=== PATIENT | male | born 1980 | race Caucasian/White ===

== ENCOUNTER 2024-08-13 10:13 | Emergency (ER) | payer OTHER ==
[~2024-08-13] VITALS: Ht 175.3 cm; Wt 86.3 kg
[2024-08-13] MEDS ORDERED: TRAZODONE HCL50 MG PO (10:44)
[2024-08-13] MEDS ORDERED: CYMBALTA60 MG PO (10:44)
[2024-08-13] MEDS ORDERED: OMEPRAZOLE20 MG PO (10:44)
[2024-08-13] MEDS ORDERED: NEURONTIN300 MG PO (10:44)
[2024-08-13] MEDS ORDERED: VENTOLIN HFA18 GM INH (10:44)
[2024-08-13] MEDS ORDERED: QVAR REDIHALE10.6 GM INH (10:44)
[2024-08-13] MEDS ORDERED: CLEOCIN T60 ML TOP (10:44)
[2024-08-13] MEDS ORDERED: DOXYCYCLINE HY100 MG PO (10:44)
[2024-08-13] MEDS ORDERED: ABILIFY5 MG PO (10:44)
[2024-08-13] MEDS ORDERED: FLUTICASONE PRO12 GM INH (10:44)
[2024-08-13 11:00] VITALS: BP 136/78
[2024-08-13] MEDS ORDERED: ALBUTEROL/IPRATROPIUM 3 ML NEB INH ONE (11:00)
== END 2024-08-13 11:00 | disposition home or self-care (01) ==
LOC: ED 10:13
DX: Z76.0 Encounter for issue of repeat prescription (principal); Z79.899 Other long term (current) drug therapy
CPT/HCPCS: 94640; 99281

== ENCOUNTER 2024-08-24 11:07 | Emergency (ER) | payer OTHER ==
[~2024-08-24] VITALS: Ht 175.3 cm; Wt 72.1 kg
[~2024-08-24 11:07] MED LIST: ABILIFY5 MG PO; CLEOCIN T60 ML TOP; CYMBALTA60 MG PO; DOXYCYCLINE HY100 MG PO; FLUTICASONE PRO12 GM INH; NEURONTIN300 MG PO; OMEPRAZOLE20 MG PO; QVAR REDIHALE10.6 GM INH; TRAZODONE HCL50 MG PO; VENTOLIN HFA18 GM INH
--- OUTSIDE RECORDS SUMMARY | 2024-08-24 11:09 | XMS ---
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 Eber has no Care Guidelines for this patient. Robi VISIT COUNT (12 MO.) [facility] NOTE: Visits indicate total known visits. ED/UCC VISIT TRACKING (12 MO.) 08/24/2024 11:09 [facility] [place] TYPE: Emergency COMPLAINT: - MEDICATION REFILL 08/13/2024 10:14 [facility] [place] TYPE: Emergency COMPLAINT: - MEDICATION REFILL DIAGNOSES: - Encounter for issue of repeat prescription - Other chcf (current) drug therapy INPATIENT VISIT TRACKING (12 MO.) No inpatient visits to display in this time frame [email or web address]
[2024-08-24] MEDS ORDERED: VENTOLIN HFA18 GM (12:43)
[2024-08-24 12:59] VITALS: BP 125/74
== END 2024-08-24 13:01 | disposition home or self-care (01) ==
LOC: ED 11:07
DX: Z76.0 Encounter for issue of repeat prescription (principal); Z88.8 Allergy status to other drugs, medicaments and biological substances; Z79.899 Other long term (current) drug therapy
CPT/HCPCS: 99281

== ENCOUNTER 2024-09-04 13:07 | Emergency (ER) | payer OTHER ==
[~2024-09-04] VITALS: Ht 175.3 cm; Wt 75.0 kg
[~2024-09-04 13:07] MED LIST changes: +VENTOLIN HFA18 GM
--- OUTSIDE RECORDS SUMMARY | 2024-09-04 13:08 | XMS ---
PreManage Notification: SANTOS GAGE Security Manager Estate Events No recent Security Events currently on file CRITERIA MET - [facility] - 2 Visits in 30 Days CARE PROVIDERS There are no care providers on record at this time. Eber has no Care Guidelines for this patient. Robi VISIT COUNT (12 MO.) 3 [facility] [place] H. TOTAL 3 NOTE: Visits indicate total known visits. ED/C VISIT TRACKING (12 MO.) 09/04/2024 13:[address] [facility] [place] TYPE: Emergency COMPLAINT: - VOMITING 08/24/2024 11:09 [facility] [place] TYPE: Emergency COMPLAINT: - MEDICATION REFILL DIAGNOSES: - Allergy status to other drugs, medicaments and biological substances - Encounter for issue of repeat prescription - Other alf (current) drug therapy 08/13/2024 10:14 [facility] [place] TYPE: Emergency COMPLAINT: - MEDICATION REFILL DIAGNOSES: - Encounter for issue of repeat prescription - Other longshore equipment operator (current) drug therapy INPATIENT VISIT TRACKING (12 MO.) No inpatient visits to display in this time frame [email or web address]
[2024-09-04] MEDS ORDERED: SODIUM CHLORIDE 0.9% 500 ML IV ONE (13:30)
[2024-09-04 13:54] LABS: BASOPHILS 1.5 % (0-2); EOSINOPHILS 2.5 % (0-6); HEMATOCRIT 40.5 % (35.0-50.0); HEMOGLOBIN 13.6 g/dL (12.0-18.0); LYMPHOCYTES 36.8 % (24-44); MCH 32.2 (27-36); MCHC 33.6 g/dl (30-36); MCV 95.9 fl (81-99); MONOCYTES 7.4 % (0-12); NEUTROPHILS 51.8 % (39-80); PLATELET COUNT 367 K/uL (140-440); RBC 4.22 M/ul (4.3-5.7); RDW 13.5 (10.5-15.0)
[2024-09-04 14:21] LABS: ALBUMIN 3.3 g/dL (3.4-5.0); ALBUMIN/GLOBULIN RATIO 1.06 (1.1-2.4); ANION GAP 10.4 (7-21); BILIRUBIN, TOTAL 0.2 ng/dL (0.2-1.0); BUN/CREATININE RATIO 10.84 (6.0-28.6); CALCIUM 7.7 mg/dL (8.5-10.1); CREATININE, SERUM 0.83 mg/dL (0.70-1.30); MAGNESIUM 1.7 mg/dL (1.8-2.4); POTASSIUM 3.4 mmol/L (3.5-5.1); PROTEIN, TOTAL 6.4 g/dL (6.4-8.2)
[2024-09-04 14:25] LABS: ALCOHOL, MEDICAL 71 ng/dL (<3)
[2024-09-04 15:40] VITALS: BP 101/69
== END 2024-09-04 15:40 | disposition home or self-care (01) ==
LOC: ED 13:07
PROVIDERS: Emergency Medicine
DX: R11.2 Nausea with vomiting, unspecified (principal); F10.90 Alcohol use, unspecified, uncomplicated; Y90.3 Blood alcohol level of 60-79 mg/100 ml; Z88.6 Allergy status to analgesic agent; Z88.8 Allergy status to other drugs, medicaments and biological substances; Z79.899 Other long term (current) drug therapy
CPT/HCPCS: 36415; 80053; 83690; 83735; 85025; 99284; G0480; J7040

== ENCOUNTER 2024-10-01 20:04 | Emergency (ER) | payer OTHER ==
[~2024-10-01] VITALS: Ht 175.3 cm; Wt 70.3 kg
--- OUTSIDE RECORDS SUMMARY | 2024-10-01 20:04 | XMS ---
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 - 2 Visits in 30 Days CARE PROVIDERS There are no care providers on record at this time. Eber has no Care Guidelines for this patient. Robi VISIT COUNT (12 MO.) [facility] H. TOTAL 4 NOTE: Visits indicate total known visits. ED/C VISIT TRACKING (12 MO.) 10/01/2024 20:[address] [facility] [address] [facility] [place] TYPE: Emergency COMPLAINT: - MENTAL HEALTH 09/04/2024 13:07 [facility] [place] TYPE: Emergency COMPLAINT: - VOMITING DIAGNOSES: - Alcohol use, unspecified, uncomplicated - Allergy status to analgesic agent - Allergy status to other drugs, medicaments and biological substances - Blood alcohol level of 60-79 mg/100 ml - Nausea with vomiting, unspecified - Other salvage determiner (current) drug therapy 08/24/2024 11:[address] [facility] [address] [facility] [place] TYPE: Emergency COMPLAINT: - MEDICATION REFILL DIAGNOSES: - Allergy status to other drugs, medicaments and biological substances - Encounter for issue of repeat prescription - Other retirement (current) drug therapy 08/13/2024 10:[address] [facility] [address] [facility] [place] TYPE: Emergency COMPLAINT: - MEDICATION REFILL DIAGNOSES: - Encounter for issue of repeat prescription - Other salvage determiner (current) drug therapy INPATIENT VISIT TRACKING (12 MO.) No inpatient visits to display in this time frame [email or web address]
[2024-10-01 20:49] VITALS: BP 143/95
== END 2024-10-01 20:50 | disposition home or self-care (01) ==
LOC: ED 20:04
DX: Z79.899 Other long term (current) drug therapy (principal); Z88.6 Allergy status to analgesic agent; Z91.148 Patient's other noncompliance with medication regimen for other reason; Z00.8 Encounter for other general examination; Z59.00 Homelessness unspecified; Z88.8 Allergy status to other drugs, medicaments and biological substances
CPT/HCPCS: 99281

== ENCOUNTER 2024-10-06 14:07 | Emergency (ER) | payer OTHER ==
[~2024-10-06] VITALS: Ht 175.3 cm; Wt 68.0 kg
--- OUTSIDE RECORDS SUMMARY | 2024-10-06 14:09 | XMS ---
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 - 2 Visits in 30 Days CARE PROVIDERS There are no care providers on record at this time. Eber has no Care Guidelines for this patient. Robi V[facility]IT COUNT (12 MO.) [facility] NOTE: Visits indicate total known visits. ED/UCC VISIT TRACKING (12 MO.) 10/06/2024 14:08 [facility] COMPLAINT: - MEDICAL CLEARANCE 10/01/2024 20:04 [facility] HaileyAnushka [place] TYPE: Emergency COMPLAINT: - MENTAL HEALTH 09/04/2024 13:07 [facility] [place] TYPE: Emergency COMPLAINT: - VOMITING DIAGNOSES: - Alcohol use, unspecified, uncomplicated - Allergy status to analgesic agent - Allergy status to other drugs, medicaments and biological substances - Blood alcohol level of 60-79 mg/100 ml - Nausea with vomiting, unspecified - Other mcfp (current) drug therapy 08/24/2024 11:09 [facility] [place] TYPE: Emergency COMPLAINT: - MEDICATION REFILL DIAGNOSES: - Allergy status to other drugs, medicaments and biological substances - Encounter for issue of repeat prescription - Other keno terminal operator (current) drug therapy 08/13/2024 10:14 [facility] [place] TYPE: Emergency COMPLAINT: - MEDICATION REFILL DIAGNOSES: - Encounter for issue of repeat prescription - Other keno terminal operator (current) drug therapy INPATIENT VISIT TRACKING (12 MO.) No inpatient visits to display in this time frame [id number]
[2024-10-06 15:04] VITALS: BP 125/82
== END 2024-10-06 14:57 | disposition home or self-care (01) ==
LOC: ED 14:07
DX: F19.90 Other psychoactive substance use, unspecified, uncomplicated (principal); T43.216A Underdosing of selective serotonin and norepinephrine reuptake inhibitors, initial encounter; T43.596A Underdosing of other antipsychotics and neuroleptics, initial encounter; Z91.148 Patient's other noncompliance with medication regimen for other reason; Z88.6 Allergy status to analgesic agent; Z88.8 Allergy status to other drugs, medicaments and biological substances; Z79.51 Long term (current) use of inhaled steroids; Z79.899 Other long term (current) drug therapy
CPT/HCPCS: 99283

== ENCOUNTER 2024-10-10 13:01 | Emergency (ER) | payer OTHER ==
[~2024-10-10] VITALS: Ht 175.3 cm; Wt 69.4 kg
--- OUTSIDE RECORDS SUMMARY | 2024-10-10 13:02 | XMS ---
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 Eber has no Care Guidelines for this patient. E.DAnushka VISIT COUNT (12 MO.) 6 [facility] 6 NOTE: Visits indicate total known visits. ED/UCC VISIT TRACKING (12 MO.) 10/10/2024 13:01 [facility] [place] [facility] COMPLAINT: - WITHDRAWL 10/06/2024 14:08 [facility] [place] TYPE: Emergency COMPLAINT: - MEDICAL CLEARANCE DIAGNOSES: - Allergy status to analgesic agent - Allergy status to other drugs, medicaments and biological substances - Insomnia, unspecified - moth exterminator (current) use of inhaled steroids - Other custodial (current) drug therapy - Other psychoactive substance use, unspecified, uncomplicated - Patient's other noncompliance with medication regimen for other reason - Underdosing of other antipsychotics and neuroleptics, initial encounter - Underdosing of selective serotonin and norepinephrine reuptake inhibitors, initial encounter 10/01/2024 20:04 [facility] [place] TYPE: Emergency COMPLAINT: - MENTAL HEALTH DIAGNOSES: - Allergy status to analgesic agent - Allergy status to other drugs, medicaments and biological substances - Encounter for other general examination - Homelessness unspecified - Other dedicated intermodal truck driver (current) drug therapy - Patient's other noncompliance with medication regimen for other reason 09/04/2024 13:07 [facility] [place] TYPE: Emergency COMPLAINT: - VOMITING DIAGNOSES: - Alcohol use, unspecified, uncomplicated - Allergy status to analgesic agent - Allergy status to other drugs, medicaments and biological substances - Blood alcohol level of 60-79 mg/100 ml - Nausea with vomiting, unspecified - Other custodial (current) drug therapy 08/24/2024 11:09 [facility] [place] TYPE: Emergency COMPLAINT: - MEDICATION REFILL DIAGNOSES: - Allergy status to other drugs, medicaments and biological substances - Encounter for issue of repeat prescription - Other custodial (current) drug therapy 08/13/2024 10:14 [facility] [place] TYPE: Emergency COMPLAINT: - MEDICATION REFILL DIAGNOSES: - Encounter for issue of repeat prescription - Other custodial (current) drug therapy INPATIENT VISIT TRACKING (12 MO.) No inpatient visits to display in this time frame [email or web address]
[2024-10-10 18:08] LABS: BILIRUBIN, URINE NEGATIVE (negative); BLOOD/HGB, URINE NEGATIVE (Negative); KETONE, URINE NEGATIVE (Negative); LEUK ESTERASE, URINE NEGATIVE (negative); NITRITE, URINE NEGATIVE (negative); PH, URINE 6.5 (5-7)
[2024-10-10 18:24] LABS: AMPHETAMINES, URINE NEGATIVE (NEGATIVE); BARBITURATES, URINE NEGATIVE (NEGATIVE); BENZODIAZEPINE, URINE NEGATIVE (NEGATIVE); BUPRENORPHINE, URINE NEGATIVE (NEGATIVE); CANNABINOID, URINE POSITIVE (NEGATIVE); COCAINE, URINE NEGATIVE (NEGATIVE); ECSTASY, URINE NEGATIVE (NEGATIVE); FENTANYL, URINE NEGATIVE (NEGATIVE); METHADONE, URINE NEGATIVE (NEGATIVE); OPIATES, URINE NEGATIVE (NEGATIVE); OXYCODONE, URINE NEGATIVE (NEGATIVE); PHENCYCLIDINE, URINE NEGATIVE (NEGATIVE)
[2024-10-11 15:55] VITALS: BP 142/93
== END 2024-10-11 15:55 | disposition home or self-care (01) ==
LOC: ED 13:01
PROVIDERS: Emergency Medicine
DX: R45.851 Suicidal ideations (principal); J44.9 Chronic obstructive pulmonary disease, unspecified; G47.00 Insomnia, unspecified; Z79.899 Other long term (current) drug therapy; Z88.1 Allergy status to other antibiotic agents; Z88.8 Allergy status to other drugs, medicaments and biological substances
CPT/HCPCS: 80307; 81003; 99284

== ENCOUNTER 2025-04-23 06:11 | Emergency (ER) | payer OTHER ==
[~2025-04-23] VITALS: Ht 175.3 cm; Wt 66.3 kg
[2025-04-23 06:36] LABS: BASOPHILS 0.7 % (0.2-1.2); EOSINOPHILS 2.6 % (0.8-7.0); LYMPHOCYTES 33.3 % (21.8-53.1); MCH 31.7 PG (25.7-32.2); MCHC 33.5 g/dL (32.3-36.5); MCV 94.5 fL (79.0-92.2); MONOCYTES 8.8 % (5.3-12.2); NEUTROPHILS 54.5 % (34.0-67.9); RBC 4.36 M/uL (4.63-6.08)
[2025-04-23 07:01] LABS: ALCOHOL, MEDICAL <3 ng/dL (<3); ALT (SGPT) 19 U/L (14-59); AST (SGOT) 15 U/L (15-37); GLOMERULAR FILTRATION RATE,EST 111 mL/min (>60); PROTEIN, TOTAL 6.5 g/dL (6.4-8.2); TSH, 3RD GENERATION 1.785 uIU/mL (0.358-3.740); UREA NITROGEN 11 mg/dL (7-18)
[2025-04-23 08:18] LABS: BLOOD/HGB, URINE NEGATIVE (Negative); KETONE, URINE TRACE (Negative); LEUK ESTERASE, URINE NEGATIVE (negative); NITRITE, URINE NEGATIVE (negative)
[2025-04-23 08:49] LABS: AMPHETAMINES, URINE POSITIVE (NEGATIVE); BARBITURATES, URINE NEGATIVE (NEGATIVE); BENZODIAZEPINE, URINE NEGATIVE (NEGATIVE); CANNABINOID, URINE POSITIVE (NEGATIVE); COCAINE, URINE NEGATIVE (NEGATIVE); ECSTASY, URINE NEGATIVE (NEGATIVE); FENTANYL, URINE POSITIVE (NEGATIVE); METHADONE, URINE NEGATIVE (NEGATIVE); OPIATES, URINE NEGATIVE (NEGATIVE); OXYCODONE, URINE NEGATIVE (NEGATIVE); PHENCYCLIDINE, URINE NEGATIVE (NEGATIVE)
[2025-04-23 09:55] VITALS: BP 121/66
== END 2025-04-23 09:55 | disposition home or self-care (01) ==
LOC: ED 06:11
PROVIDERS: Family Medicine
DX: F32.9 Major depressive disorder, single episode, unspecified (principal); J44.9 Chronic obstructive pulmonary disease, unspecified; Z88.6 Allergy status to analgesic agent; Z88.8 Allergy status to other drugs, medicaments and biological substances; Z79.899 Other long term (current) drug therapy
CPT/HCPCS: 36415; 80053; 80307; 81003; 84443; 85025; 99284; G0480

== ENCOUNTER 2025-06-29 20:17 | Emergency (ER) | payer OTHER ==
[~2025-06-29] VITALS: Ht 175.3 cm; Wt 68.5 kg
[2025-06-29] MEDS ORDERED: BACTRIM DS TAB1 EACH PO (21:03)
[2025-06-29] MEDS ORDERED: TRIMETHOPRIM/SULFAMETHOXAZOLE 1 EA HOME.PACK PO ONE (21:15)
[2025-06-29 21:18] VITALS: BP 120/88
== END 2025-06-29 21:18 | disposition home or self-care (01) ==
LOC: ED 20:17
DX: L72.9 Follicular cyst of the skin and subcutaneous tissue, unspecified (principal); L08.9 Local infection of the skin and subcutaneous tissue, unspecified; J44.9 Chronic obstructive pulmonary disease, unspecified; Z88.6 Allergy status to analgesic agent; Z88.8 Allergy status to other drugs, medicaments and biological substances
CPT/HCPCS: 99283; A9270

== ENCOUNTER 2025-07-03 03:42 | Emergency (ER) | payer OTHER ==
[~2025-07-03] VITALS: Ht 175.3 cm; Wt 65.9 kg
[~2025-07-03 03:42] MED LIST changes: +BACTRIM DS TAB1 EACH PO
--- OUTSIDE RECORDS SUMMARY | 2025-07-03 03:44 | XMS ---
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 Eber has no Care Guidelines for this patient. Robi VISIT COUNT (12 MO.) [facility] NOTE: Visits indicate total known visits. ED/UCC VISIT TRACKING (12 MO.) 07/03/2025 03:43 [facility] [place] [facility] COMPLAINT: - MEDICAL CLEARANCE 06/29/2025 20:17 [facility] [place] TYPE: Emergency COMPLAINT: - SKIN ISSUE DIAGNOSES: - Allergy status to analgesic agent - Allergy status to other drugs, medicaments and biological substances - Chronic obstructive pulmonary disease, unspecified - Follicular cyst of the skin and subcutaneous tissue, unspecified - Local infection of the skin and subcutaneous tissue, unspecified - Localized swelling, mass and lump, left upper limb 04/23/2025 06:11 [facility] [place] TYPE: Emergency COMPLAINT: - MEDICAL CLEARANCE DIAGNOSES: - Allergy status to analgesic agent - Allergy status to other drugs, medicaments and biological substances - Chronic obstructive pulmonary disease, unspecified - Depression, unspecified - Major depressive disorder, single episode, unspecified - Other detention (current) drug therapy 10/10/2024 13:01 [facility] [place] TYPE: Emergency COMPLAINT: - WITHDRAWL DIAGNOSES: - Alcohol dependence with withdrawal, unspecified - Allergy status to other antibiotic agents - Allergy status to other drugs, medicaments and biological substances - Chronic obstructive pulmonary disease, unspecified - Insomnia, unspecified - Other long term care pharmacist (current) drug therapy - Suicidal ideations 10/06/2024 14:08 [facility] [place] TYPE: Emergency COMPLAINT: - MEDICAL CLEARANCE DIAGNOSES: - Allergy status to analgesic agent - Allergy status to other drugs, medicaments and biological substances - Insomnia, unspecified - terminal clerk (current) use of inhaled steroids - Other long term care pharmacist (current) drug therapy - Other psychoactive substance [...] general examination - Homelessness unspecified - Other long term care pharmacist (current) drug therapy - Patient's other noncompliance with medication regimen for other reason 09/04/2024 13:07 [facility] [place] TYPE: Emergency COMPLAINT: - VOMITING DIAGNOSES: - Alcohol use, unspecified, uncomplicated - Allergy status to analgesic agent - Allergy status to other drugs, medicaments and biological substances - Blood alcohol level of 60-79 mg/100 ml - Nausea with vomiting, unspecified - Other long term care pharmacist (current) drug therapy 08/24/2024 11:09 [facility] [place] TYPE: Emergency COMPLAINT: - MEDICATION REFILL DIAGNOSES: - Allergy status to other drugs, medicaments and biological substances - Encounter for issue of repeat prescription - Other long term care pharmacist (current) drug therapy 08/13/2024 10:14 [facility] [place] TYPE: Emergency COMPLAINT: - MEDICATION REFILL DIAGNOSES: - Encounter for issue of repeat prescription - Other long term care pharmacist (current) drug therapy INPATIENT VISIT TRACKING (12 MO.) No inpatient visits to display in this time frame [id number]
[2025-07-03] MEDS ORDERED: TRAZODONE HCL50 MG PO (04:39)
[2025-07-03] MEDS ORDERED: OMEPRAZOLE20 MG PO (04:39)
[2025-07-03] MEDS ORDERED: QVAR REDIHALE10.6 GM INH (04:39)
[2025-07-03] MEDS ORDERED: NEURONTIN300 MG PO (04:39)
[2025-07-03] MEDS ORDERED: DULOXETINE HCL60 MG PO (04:39)
[2025-07-03] MEDS ORDERED: VENTOLIN HFA18 GM INH (04:39)
[2025-07-03 04:54] VITALS: BP 131/89
== END 2025-07-03 04:54 | disposition home or self-care (01) ==
LOC: ED 03:42
DX: J44.9 Chronic obstructive pulmonary disease, unspecified (principal); Z76.0 Encounter for issue of repeat prescription; Z59.00 Homelessness unspecified
CPT/HCPCS: 99281

== ENCOUNTER 2025-07-06 10:44 | Emergency (ER) | payer OTHER ==
[~2025-07-06] VITALS: Ht 175.3 cm; Wt 65.0 kg
[~2025-07-06 10:44] MED LIST changes: +DULOXETINE HCL60 MG PO
[2025-07-06] MEDS ORDERED: ASMANEX HFA13 G1 INH (11:48)
[2025-07-06 12:04] VITALS: BP 109/76
== END 2025-07-06 12:03 | disposition home or self-care (01) ==
LOC: ED 10:44
DX: D23.5 Other benign neoplasm of skin of trunk (principal); J44.9 Chronic obstructive pulmonary disease, unspecified; Z88.1 Allergy status to other antibiotic agents; Z88.8 Allergy status to other drugs, medicaments and biological substances; Z79.899 Other long term (current) drug therapy
CPT/HCPCS: 99282

== ENCOUNTER 2025-07-16 12:51 | Emergency (ER) | payer OTHER ==
[~2025-07-16] VITALS: Ht 175.3 cm; Wt 60.0 kg
[~2025-07-16 12:51] MED LIST changes: +ASMANEX HFA13 G1 INH
--- OUTSIDE RECORDS SUMMARY | 2025-07-16 12:52 | XMS ---
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 Eber has no Care Guidelines for this patient. Robi VISIT COUNT (12 MO.) [address] [place], [place] [address] H. TOTAL 11 NOTE: Visits indicate total known visits. ED/UCC VISIT TRACKING (12 MO.) [facility]/16/2025 12:[facility] [place] [facility] COMPLAINT: - ABDOMINAL PAIN 07/06/2025 10:[address] [facility] [address] [facility] [place] TYPE: Emergency COMPLAINT: - MEDICATION REFILL DIAGNOSES: - Allergy status to other antibiotic agents - Allergy status to other drugs, medicaments and biological substances - Chronic obstructive pulmonary disease, unspecified - Encounter for issue of repeat prescription - Other benign neoplasm of skin of trunk - Other half-way (current) drug therapy 07/03/2025 03:[address] [facility] [place] TYPE: Emergency COMPLAINT: - MEDICAL CLEARANCE DIAGNOSES: - Encounter for issue of repeat prescription - Homelessness unspecified 06/29/2025 20:[address] [facility] [place] TYPE: Emergency COMPLAINT: - SKIN ISSUE [...] depressive disorder, single episode, unspecified - Other half-way (current) drug therapy 10/10/2024 13:01 [facility] [place] TYPE: Emergency COMPLAINT: - WITHDRAWL DIAGNOSES: - Alcohol dependence with withdrawal, unspecified - Allergy status to other antibiotic agents - Allergy status to other drugs, medicaments and biological substances - Chronic obstructive pulmonary disease, unspecified - Insomnia, unspecified - Other assistant terminal manager (current) drug therapy - Suicidal ideations 10/06/2024 14:08 [facility] [place] TYPE: Emergency COMPLAINT: - MEDICAL CLEARANCE DIAGNOSES: - Allergy status to analgesic agent - Allergy status to other drugs, medicaments and biological substances - Insomnia, unspecified - termite treater (current) use of inhaled steroids - Other half-way (current) drug therapy - Other psychoactive substance [...] general examination - Homelessness unspecified - Other assistant terminal manager (current) drug therapy - Patient's other noncompliance with medication regimen for other reason 09/04/2024 13:07 [facility] [place] TYPE: Emergency COMPLAINT: - VOMITING DIAGNOSES: - Alcohol use, unspecified, uncomplicated - Allergy status to analgesic agent - Allergy status to other drugs, medicaments and biological substances - Blood alcohol level of 60-79 mg/100 ml - Nausea with vomiting, unspecified - Other assistant terminal manager (current) drug therapy 08/24/2024 11:09 [facility] [place] TYPE: Emergency COMPLAINT: - MEDICATION REFILL DIAGNOSES: - Allergy status to other drugs, medicaments and biological substances - Encounter for issue of repeat prescription - Other half-way (current) drug therapy 08/13/2024 10:14 [facility] [place] TYPE: Emergency COMPLAINT: - MEDICATION REFILL DIAGNOSES: - Encounter for issue of repeat prescription - Other assistant terminal manager (current) drug therapy INPATIENT VISIT TRACKING (12 MO.) No inpatient visits to display in this time frame [id number]
[2025-07-16] MEDS ORDERED: NALOXONE HCL 0.4 MG SYR ONE (13:11)
[2025-07-16] MEDS ORDERED: NALOXONE HCL 0.4 MG SYR IV ONE (13:15)
[2025-07-16] MEDS ORDERED: NALOXONE HCL 2 MG/2 ML SYR IV ONE (13:45)
[2025-07-16 13:57] LABS: BASOPHILS 0.5 % (0.2-1.2); EOSINOPHILS 1.4 % (0.8-7.0); LYMPHOCYTES 59.4 % (21.8-53.1); MCH 31.6 PG (25.7-32.2); MCHC 34.3 g/dL (32.3-36.5); MCV 92.0 fL (79.0-92.2); MONOCYTES 8.7 % (5.3-12.2); NEUTROPHILS 30.0 % (34.0-67.9); RBC 4.15 M/uL (4.63-6.08)
[2025-07-16] MEDS ORDERED: SODIUM CHLORIDE 0.9% 1,000 ML IV ONE (14:00)
[2025-07-16 14:07] LABS: ALT (SGPT) 25.0 U/L (14-59); AST (SGOT) 20.0 U/L (15-37); GLOMERULAR FILTRATION RATE,EST 110.0 mL/min (>60); PROTEIN, TOTAL 6.5 g/dL (6.4-8.2); UREA NITROGEN 9.0 mg/dL (7-18)
[2025-07-16 15:30] LABS: BLOOD/HGB, URINE NEGATIVE (Negative); KETONE, URINE TRACE (Negative); LEUK ESTERASE, URINE NEGATIVE (negative); NITRITE, URINE NEGATIVE (negative)
[2025-07-16 18:44] VITALS: BP 109/81
--- NOTE | 2025-07-18 15:13 | EKG ---
[facility] [address] [facility] [place], [place] [address] Signed Normal sinus rhythm Normal ECG No previous ECGs available Confirmed by EMILIANO ACEVEDO MD ([id number]) on 07/18/2025 3:13:34 PM Electronically Signed By: EMILIANO ACEVEDO 07/18/25 1513 PATIENT NAME: SANTOS GAGE Electrocardiogram DATE OF : 80 PHYSICIAN: EMILIANO ACEVEDO REPORT #: [id number] REPORT IS CONFIDENTIAL AND NOT TO BE RELEASED WITHOUT AUTHORIZATION
== END 2025-07-16 18:35 | disposition home or self-care (01) ==
LOC: ED 12:51
PROVIDERS: Emergency Medicine
DX: R10.9 Unspecified abdominal pain (principal); R11.10 Vomiting, unspecified; J44.9 Chronic obstructive pulmonary disease, unspecified; Z59.00 Homelessness unspecified; Z88.6 Allergy status to analgesic agent; Z88.8 Allergy status to other drugs, medicaments and biological substances; Z79.51 Long term (current) use of inhaled steroids; Z79.899 Other long term (current) drug therapy
CPT/HCPCS: 36415; 71045; 74177; 80053; 81003; 83690; 85025; 96361; 96374; 99284-25; J2312; J7030; Q9967

== ENCOUNTER 2025-07-19 21:58 | Emergency (ER) | payer OTHER ==
[~2025-07-19] VITALS: Ht 175.3 cm; Wt 60.0 kg
--- OUTSIDE RECORDS SUMMARY | 2025-07-19 21:58 | XMS ---
PreManage Notification: SANTOS GAGE Security Manager Country Events No recent Security Events currently on file CRITERIA MET - 6 ED Visits in 6 Months - [facility] - 2 Visits in 30 Days CARE PROVIDERS There are no care providers on record at this time. Eber has no Care Guidelines for this patient. EMariaa VISIT COUNT (12 MO.) 12 [facility] TOTAL 12 NOTE: Visits indicate total known visits. ED/UCC VISIT TRACKING (12 MO.) 07/19/2025 21:58 [facility] COMPLAINT: - ABDOMINAL PAIN 07/16/2025 12:51 [facility] [place] TYPE: Emergency COMPLAINT: - ABDOMINAL PAIN DIAGNOSES: - Allergy status to analgesic agent - Allergy status to other drugs, medicaments and biological substances - Chronic obstructive pulmonary disease, unspecified - Homelessness unspecified - assisted (current) use of inhaled steroids - Other petroleum terminal plant operator (current) drug therapy - Unspecified abdominal pain - Vomiting, unspecified 07/06/2025 10:44 [facility] [place] TYPE: Emergency COMPLAINT: - MEDICATION REFILL DIAGNOSES: - Allergy status to other antibiotic agents - Allergy status to other drugs, medicaments and biological substances - Chronic obstructive pulmonary disease, unspecified - Encounter for issue of repeat prescription - Other benign neoplasm of skin of trunk - Other petroleum terminal plant operator (current) drug therapy 07/03/2025 03:43 [facility] [place] TYPE: Emergency COMPLAINT: - MEDICAL CLEARANCE DIAGNOSES: - Encounter for issue of repeat prescription - Homelessness unspecified 06/29/2025 20:17 [facility] Silvestrelorena BatistaAnushka [place] TYPE: Emergency COMPLAINT: - SKIN [...] depressive disorder, single episode, unspecified - Other petroleum terminal plant operator (current) drug therapy 10/10/2024 13:01 [facility] [place] TYPE: Emergency COMPLAINT: - WITHDRAWL DIAGNOSES: - Alcohol dependence with withdrawal, unspecified - Allergy status to other antibiotic agents - Allergy status to other drugs, medicaments and biological substances - Chronic obstructive pulmonary disease, unspecified - Insomnia, unspecified - Other petroleum terminal plant operator (current) drug therapy - Suicidal ideations 10/06/2024 14:08 [facility] [place] TYPE: Emergency COMPLAINT: - MEDICAL CLEARANCE DIAGNOSES: - Allergy status to analgesic agent - Allergy status to other drugs, medicaments and biological substances - Insomnia, unspecified - assisted (current) use of inhaled steroids - Other [...] general examination - Homelessness unspecified - Other half-way (current) drug therapy - Patient's other noncompliance with medication regimen for other reason 09/04/2024 13:07 [facility] [place] TYPE: Emergency COMPLAINT: - VOMITING DIAGNOSES: - Alcohol use, unspecified, uncomplicated - Allergy status to analgesic agent - Allergy status to other drugs, medicaments and biological substances - Blood alcohol level of 60-79 mg/100 ml - Nausea with vomiting, unspecified - Other petroleum terminal plant operator (current) drug therapy 08/24/2024 11:09 [facility] [place] TYPE: Emergency COMPLAINT: - MEDICATION REFILL DIAGNOSES: - Allergy status to other drugs, medicaments and biological substances - Encounter for issue of repeat prescription - Other petroleum terminal plant operator (current) drug therapy 08/13/2024 10:14 [facility] [place] TYPE: Emergency COMPLAINT: - MEDICATION REFILL DIAGNOSES: - Encounter for issue of repeat prescription - Other petroleum terminal plant operator (current) drug therapy INPATIENT VISIT TRACKING (12 MO.) No inpatient visits to display in this time frame [id number]
[2025-07-19] MEDS ORDERED: OMEPRAZOLE20 MG PO (22:24)
[2025-07-19] MEDS ORDERED: DULOXETINE HCL60 MG PO (22:24)
[2025-07-19] MEDS ORDERED: ASMANEX HFA13 G1 INH (22:24)
[2025-07-19] MEDS ORDERED: QVAR REDIHALE10.6 GM INH (22:24)
[2025-07-19] MEDS ORDERED: VENTOLIN HFA18 GM INH (22:24)
[2025-07-19] MEDS ORDERED: TRAZODONE HCL50 MG PO (22:24)
[2025-07-19] MEDS ORDERED: NEURONTIN300 MG PO (22:24)
[2025-07-19 22:30] VITALS: BP 132/87
[2025-07-19] MEDS ORDERED: LIDOCAINE & ANTACID 35 ML BTL PO ONE (22:30)
[2025-07-19] MEDS ORDERED: PANTOPRAZOLE SODIUM 40 MG TABEC PO ONE (22:30)
== END 2025-07-19 22:30 | disposition home or self-care (01) ==
LOC: ED 21:58
DX: Z76.0 Encounter for issue of repeat prescription (principal)
CPT/HCPCS: 99281; A9270

== ENCOUNTER 2025-07-20 15:35 | Emergency (ER) | payer OTHER ==
[~2025-07-20] VITALS: Ht 175.3 cm; Wt 66.6 kg
[2025-07-20 18:06] LABS: BASOPHILS 0.7 % (0.2-1.2); EOSINOPHILS 1.1 % (0.8-7.0); LYMPHOCYTES 40.2 % (21.8-53.1); MCH 31.3 PG (25.7-32.2); MCHC 33.3 g/dL (32.3-36.5); MCV 94.0 fL (79.0-92.2); MONOCYTES 8.5 % (5.3-12.2); NEUTROPHILS 49.3 % (34.0-67.9); RBC 4.15 M/uL (4.63-6.08)
[2025-07-20 18:08] LABS: BLOOD/HGB, URINE NEGATIVE (Negative); KETONE, URINE NEGATIVE (Negative); LEUK ESTERASE, URINE NEGATIVE (negative); NITRITE, URINE NEGATIVE (negative)
[2025-07-20 18:23] LABS: AMPHETAMINES, URINE POSITIVE (NEGATIVE); BARBITURATES, URINE NEGATIVE (NEGATIVE); BENZODIAZEPINE, URINE NEGATIVE (NEGATIVE); CANNABINOID, URINE POSITIVE (NEGATIVE); COCAINE, URINE NEGATIVE (NEGATIVE); ECSTASY, URINE NEGATIVE (NEGATIVE); FENTANYL, URINE NEGATIVE (NEGATIVE); METHADONE, URINE NEGATIVE (NEGATIVE); OPIATES, URINE NEGATIVE (NEGATIVE); OXYCODONE, URINE NEGATIVE (NEGATIVE); PHENCYCLIDINE, URINE NEGATIVE (NEGATIVE)
[2025-07-20 18:24] LABS: CORONAVIRUS COVID-19 AG NEGATIVE (NEGATIVE)
[2025-07-20 18:29] LABS: ALCOHOL, MEDICAL <3 ng/dL (<3); ALT (SGPT) 19 U/L (14-59); AST (SGOT) 13 U/L (15-37); GLOMERULAR FILTRATION RATE,EST 115 mL/min (>60); PROTEIN, TOTAL 6.4 g/dL (6.4-8.2); TSH, 3RD GENERATION 1.943 uIU/mL (0.358-3.740); UREA NITROGEN 12 mg/dL (7-18)
[2025-07-20 20:06] VITALS: BP 110/60
--- NOTE | 2025-07-21 21:20 | EKG ---
[facility] [address] [facility] [facility] [place] [address] Signed Sinus bradycardia with sinus arrhythmia Otherwise normal ECG When compared with ECG of 16-JUL-2025 14:22, QT has shortened Confirmed by Eliz Dang MD () on 07/21/2025 9:20:35 PM Electronically Signed By: ELIZ DANG MD 07/21/252119 PATIENT NAME: SANTOS GAGE Electrocardiogram DATE OF : 80 PHYSICIAN: ELIZ DANG MD REPORT #: [id number] REPORT IS CONFIDENTIAL AND NOT TO BE RELEASED WITHOUT AUTHORIZATION
== END 2025-07-20 20:50 | disposition home or self-care (01) ==
LOC: ED 15:35
PROVIDERS: Emergency Medicine
DX: F15.90 Other stimulant use, unspecified, uncomplicated (principal); F12.90 Cannabis use, unspecified, uncomplicated; Z79.899 Other long term (current) drug therapy; Z88.1 Allergy status to other antibiotic agents; Z88.5 Allergy status to narcotic agent
CPT/HCPCS: 36415; 80053; 80307; 81003; 84443; 85025; 93005; 93010; 99283; G0480